=== PATIENT | female | born 1960 | race Caucasian/White ===

== ENCOUNTER 2020-03-28 15:02 | Emergency (ER) | payer MEDICARE, OTHER ==
[~2020-03-28] VITALS: Ht 157.5 cm; Wt 113.4 kg
[2020-03-28] MEDS ORDERED: AMLO5TAB9 PO (15:24)
[2020-03-28] MEDS ORDERED: HYDR28.316 RC (15:24)
[2020-03-28] MEDS ORDERED: ASCO-352 PO (15:24)
[2020-03-28] MEDS ORDERED: CLON0.1T PO (15:24)
[2020-03-28] MEDS ORDERED: POLY17PO4 PO (15:24)
[2020-03-28] MEDS ORDERED: LOSA50TA39 PO (15:24)
[2020-03-28] MEDS ORDERED: ZINC1CAP2 PO (15:24)
[2020-03-28] MEDS ORDERED: CHOL100040 PO (15:24)
--- NOTE | 2020-03-28 16:14 | NUR ---
CALLED [facility] FOR TRANSPORT TO [facility]. ETA 1899. TRIP NUMBER [id number].
--- NOTE | 2020-03-28 17:15 | NUR ---
CALLED [facility], NO ETA, REFERENCE NUMBER [id number].
--- NOTE | 2020-03-28 17:21 | NUR ---
SPOKE WITH CHRYSTAL FROM CALL THE CAR, TRANSPORTATION INFO: [facility] ETA: [id number]
[2020-03-28 18:15] VITALS: BP 144/86
--- NOTE | 2020-03-28 18:22 | NUR ---
SPOKE TO ROBERT DIGITAL CARTOGRAPHIC TECHNICIAN OF [facility], INFORMED THAT PATIENT IS COMING BACK TO FACILITY
--- NOTE | 2020-03-28 19:12 | NUR ---
Patient picked up by RA in stable condition. Written and verbal after care instructions given. Patient verbalizes understanding of instruction. Patient will be brought back to [facility].
== END 2020-03-28 19:13 ==
LOC: ER 15:06
DX: D17.79 Benign lipomatous neoplasm of other sites (principal); F32.9 Major depressive disorder, single episode, unspecified; M19.90 Unspecified osteoarthritis, unspecified site; I12.9 Hypertensive chronic kidney disease with stage 1 through stage 4 chronic kidney disease, or unspecified chronic kidney disease; E11.22 Type 2 diabetes mellitus with diabetic chronic kidney disease; N18.9 Chronic kidney disease, unspecified; E66.01 Morbid (severe) obesity due to excess calories; Z68.42 Body mass index [BMI] 45.0-49.9, adult; Z79.899 Other long term (current) drug therapy

== ENCOUNTER 2020-07-06 12:49 | Emergency (ER) | payer MEDICARE, OTHER ==
[~2020-07-06] VITALS: Ht 157.5 cm; Wt 113.4 kg
[~2020-07-06 12:49] MED LIST: AMLO-212 PO; ASCO-352 PO; CHOL100040 PO; CLON0.1T PO; HYDR28.316 RC; LOSA50TA39 PO; POLY17PO4 PO; ZINC1CAP2 PO
[2020-07-06 13:45] LABS: BASOPHILS # (AUTO) 0.1 /CMM (0.0-0.2); BASOPHILS % (AUTO) 0.7 % (0.0-2.0); EOSINOPHILS % (AUTO) 0.1 % (0.0-6.0); HEMATOCRIT 35 % (33-45); HEMOGLOBIN 11.7 g/dL (11.5-14.8); LYMPHOCYTES # (AUTO) 0.7 /CMM (0.8-4.8); LYMPHOCYTES % (AUTO) 6.8 % (20.0-44.0); MEAN CORPUSCULAR HGB CONC 33 g/dl (31.0-36.0); MEAN CORPUSCULAR VOLUME 87 fL (82-100); MONOCYTES # (AUTO) 0.6 /CMM (0.1-1.30); MONOCYTES % (AUTO) 6.4 % (2.0-12.0); NEUTROPHILS # (AUTO) 8.6 /CMM (1.8-8.9); PLATELET COUNT (AUTO) 295 /CMM (150-450); RED BLOOD CELL COUNT(AUTO) 4.08 MIL/uL (4.0-5.2)
[2020-07-06 13:53] LABS: CALCIUM, SERUM 9.6 mg/dL (8.5-10.1); CREATININE 1.2 mg/dL (0.6-1.3); POTASSIUM 4.1 mmol/L (3.5-5.1)
[2020-07-06 14:02] LABS: ALBUMIN 3.7 g/dL (3.4-5.0); BILIRUBIN,DIRECT 0.1 mg/dL (0.0-0.2); BILIRUBIN,TOTAL 0.4 mg/dL (0.2-1.0); TOTAL PROTEIN, SERUM 8.8 g/dL (6.4-8.2)
[2020-07-06] MEDS ORDERED: KETOROLAC TROMETHAMINE INJ 30 MG/ML VIAL IV ONE (14:30)
[2020-07-06] MEDS ORDERED: IV NS 0.9% 500 ML BAG IV ONE (14:30)
[2020-07-06 14:31] LABS: BILIRUBIN,URINE Negative (NEGATIVE); COLOR,URINE YELLOW (YELLOW); LEUKOCYTE ESTERASE ,URINE Negative (NEGATIVE); NITRITE, URINE Negative (NEGATIVE); PROTEIN,URINE 100 mg/dl (NEGATIVE); UGLUCOSE Negative (NEGATIVE)
[2020-07-06 14:43] LABS: BACTERIA,URINE Moderate /HPF (None Seen); RBC,URINE 0-3 /HPF (0-2); SQUAMOUS EPITHELIAL CELL,UR Moderate /HPF (None Seen); WBC,URINE 0-2 /HPF (0-3)
[2020-07-06] MEDS ORDERED: KETOROLAC TROMETHAMINE 15 MG/ML VIAL ONE (14:54)
--- NOTE | 2020-07-06 16:02 | NUR ---
ARRANGED BLS TRANSPORT WITH [facility] ETA: 1700 TRIP NUMBER:[id number] SPOKE TO JHONNY.
--- NOTE | 2020-07-06 17:14 | NUR ---
PATIENT A/OX4, BREATHING EVEN AND UNLABORED, NO SOB NOTED. NEEDS ATTENDED. IV removed. Catheter intact and site benign. Pressure and 4x4 applied to site. No bleeding noted.Patient discharged to facility in stable condition. Written and verbal after care instructions given. Patient verbalizes understanding of instruction. Report given to Brenda at [facility].
[2020-07-06 17:18] VITALS: BP 123/65
== END 2020-07-06 17:19 ==
LOC: ER 12:54
DX: S33.5XXA Sprain of ligaments of lumbar spine, initial encounter (principal); I10 Essential (primary) hypertension; F32.9 Major depressive disorder, single episode, unspecified; F03.90 Unspecified dementia, unspecified severity, without behavioral disturbance, psychotic disturbance, mood disturbance, and anxiety; E66.01 Morbid (severe) obesity due to excess calories; Z68.42 Body mass index [BMI] 45.0-49.9, adult; Z79.899 Other long term (current) drug therapy; W18.30XA Fall on same level, unspecified, initial encounter; Y93.89 Activity, other specified; Y92.89 Other specified places as the place of occurrence of the external cause; Y99.8 Other external cause status
CPT/HCPCS: 36415; 71045; 72110; 80048; 80076; 81001; 83690; 84484; 85025; 87086; 93005; 96374; 99285; J1885; J7040

== ENCOUNTER 2021-07-04 14:35 | Emergency (ER) | payer MEDICARE, OTHER ==
[~2021-07-04] VITALS: Ht 160 cm; Wt 98.0 kg
--- NOTE | 2021-07-04 14:45 | NUR ---
pt bib private ambulance from assisted living facility c/o "migraine" headache since last night. pt denies nausea and vomiting. verbally responsive. no focal weakness noted. 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
[2021-07-04] MEDS ORDERED: diphenhydrAMINE HCL 50 MG/ML VIAL IV ONE (15:00)
[2021-07-04] MEDS ORDERED: KETOROLAC TROMETHAMINE INJ 30 MG/ML VIAL IV ONE (15:00)
[2021-07-04] MEDS ORDERED: KETOROLAC TROMETHAMINE INJ 30 MG/ML VIAL ONE (15:03)
[2021-07-04] MEDS ORDERED: diphenhydrAMINE HCL 50 MG/ML VIAL ONE (15:03)
--- NOTE | 2021-07-04 15:13 | NUR ---
medicated as ordered. see emar.
--- NOTE | 2021-07-04 15:19 | NUR ---
THE PATIENT IS TAKEN TO CT [facility]IA [facility]
--- NOTE | 2021-07-04 15:32 | NUR ---
THE PATIENT IS BACK FROM [facility]IA [facility]
--- NOTE | 2021-07-04 17:38 | NUR ---
CALLED [facility] AND SET UP BLS TRANSPORT TO GO BACK TO [facility]. ETA 1800
--- NOTE | 2021-07-04 18:30 | NUR ---
NURSE SHENG MADE AWARE OF THE PATIENT GOING BACK TO THE FACILITY
--- NOTE | 2021-07-04 18:49 | NUR ---
IV removed. Catheter intact and site benign. Pressure and 4x4 applied to site. No bleeding noted.Patient discharged in stable condition. Written and verbal after care instructions given. Patient verbalizes understanding of instruction. The patient is picked up by arranged ambulance.
[2021-07-04 18:52] VITALS: BP 133/82
== END 2021-07-04 18:53 ==
LOC: ER 14:42
DX: G43.909 Migraine, unspecified, not intractable, without status migrainosus (principal); F32.9 Major depressive disorder, single episode, unspecified; F03.90 Unspecified dementia, unspecified severity, without behavioral disturbance, psychotic disturbance, mood disturbance, and anxiety; M19.90 Unspecified osteoarthritis, unspecified site; I12.9 Hypertensive chronic kidney disease with stage 1 through stage 4 chronic kidney disease, or unspecified chronic kidney disease; N18.9 Chronic kidney disease, unspecified; Z79.899 Other long term (current) drug therapy
CPT/HCPCS: 70450; 96374; 96375; 99284; J1200; J1885

== ENCOUNTER 2022-07-16 09:46 | Emergency (ER) | payer MEDICARE, OTHER ==
[~2022-07-16] VITALS: Ht 160 cm; Wt 99.8 kg
--- NOTE | 2022-07-16 10:03 | NUR ---
The patient denies loss of consciousness after the fall
--- NOTE | 2022-07-16 10:03 | NUR ---
According to the primary care nurse, the patient was using her front wheel walker when she slipped and fall
--- NOTE | 2022-07-16 10:03 | NUR ---
Witnessed fall by the primary care nurse while at the facility
--- NOTE | 2022-07-16 10:18 | NUR ---
pt taken to ct and x ray
[2022-07-16] MEDS ORDERED: IV NS 0.9% 500 ML BAG IV ONE (10:30)
[2022-07-16 11:04] LABS: CALCIUM, SERUM 9.1 mg/dL (8.5-10.1); CARBON DIOXIDE 30 mmol/L (21-32); CHLORIDE 96 mmol/L (98-107); CREATININE 1.1 mg/dL (0.6-1.3); GLUCOSE 102 mg/dL (74-106); POTASSIUM 4.5 mmol/L (3.5-5.1); SODIUM SERUM 133 mmol/L (136-145); UREA NITROGEN, BLOOD 22 mg/dL (7-18)
--- NOTE | 2022-07-16 11:05 | NUR ---
BLOOD SAMPLE COLLECTED AND SENT LAB.
--- NOTE | 2022-07-16 11:07 | NUR ---
established iv line 20 g right wrist ,
[2022-07-16 11:12] LABS: BASOPHILS % (AUTO) 0.4 % (0.0-2.0); EOSINOPHILS % (AUTO) 3.9 % (0.0-6.0); HEMATOCRIT 37 % (33-45); HEMOGLOBIN 11.6 g/dL (11.5-14.8); LYMPHOCYTES # (AUTO) 2.2 K/uL (0.8-4.8); LYMPHOCYTES % (AUTO) 22.9 % (20.0-44.0); MEAN CORPUSCULAR HGB CONC 31 g/dl (31.0-36.0); MEAN CORPUSCULAR VOLUME 89 fL (82-100); MONOCYTES # (AUTO) 0.8 K/uL (0.1-1.30); MONOCYTES % (AUTO) 8.7 % (2.0-12.0); NEUTROPHILS # (AUTO) 6.1 K/uL (1.8-8.9); NEUTROPHILS % (AUTO) 64.1 % (43.0-81.0); PLATELET COUNT (AUTO) 180 K/uL (150-450); RED BLOOD CELL COUNT(AUTO) 4.14 MIL/uL (4.0-5.2); WHITE BLOOD COUNT (AUTO) 9.4 K/uL (4.3-11.0)
--- NOTE | 2022-07-16 12:02 | NUR ---
[facility] CALLED FOR TRANSPORT ETA 20 MINS.
--- NOTE | 2022-07-16 12:34 | NUR ---
[facility] AT BEDSIDE.
[2022-07-16 12:45] VITALS: BP 115/63
== END 2022-07-16 12:46 | disposition home or self-care (01) ==
LOC: ER 09:49
DX: R51.9 Headache, unspecified (principal); I51.7 Cardiomegaly; I12.9 Hypertensive chronic kidney disease with stage 1 through stage 4 chronic kidney disease, or unspecified chronic kidney disease; N18.9 Chronic kidney disease, unspecified; F33.9 Major depressive disorder, recurrent, unspecified; E66.01 Morbid (severe) obesity due to excess calories; Z68.39 Body mass index [BMI] 39.0-39.9, adult; Z79.899 Other long term (current) drug therapy; W18.30XA Fall on same level, unspecified, initial encounter; Y93.89 Activity, other specified; Y92.89 Other specified places as the place of occurrence of the external cause; Y99.8 Other external cause status
CPT/HCPCS: 99285; 70450; 71045; 93005; 85025; 80048; 36415; 84484; J7040

== ENCOUNTER 2023-02-26 14:38 | Emergency (ER) | payer MEDICARE, OTHER ==
[~2023-02-26] VITALS: Ht 162.6 cm; Wt 61.2 kg
[2023-02-26 16:19] LABS: ALANINE AMINOTRANSFERASE 29 U/L (12-78); ALBUMIN 3.8 g/dL (3.4-5.0); ALCOHOL, BLOOD < 3 mg/dL (0-10); ALKALINE PHOSPHATASE 78 U/L (46-116); ASPARTATE AMINOTRANSFERASE 39 U/L (15-37); BILIRUBIN,DIRECT 0.1 mg/dL (0.0-0.2); BILIRUBIN,TOTAL 0.2 mg/dL (0.2-1.0); CALCIUM, SERUM 9.6 mg/dL (8.5-10.1); CARBON DIOXIDE 38 mmol/L (21-32); CHLORIDE 96 mmol/L (98-107); CREATININE 1.3 mg/dL (0.6-1.3); GLUCOSE 102 mg/dL (74-106); POTASSIUM 4.1 mmol/L (3.5-5.1); SODIUM SERUM 135 mmol/L (136-145); TOTAL PROTEIN, SERUM 7.8 g/dL (6.4-8.2); UREA NITROGEN, BLOOD 28 mg/dL (7-18)
[2023-02-26 16:24] LABS: BASOPHILS # (AUTO) 0.1 K/uL (0.0-0.2); EOSINOPHILS # (AUTO) 0.5 K/uL (0.0-0.7); EOSINOPHILS % (AUTO) 6.4 % (0.0-6.0); HEMATOCRIT 37 % (33-45); HEMOGLOBIN 11.7 g/dL (11.5-14.8); LYMPHOCYTES # (AUTO) 2.3 K/uL (0.8-4.8); MEAN CORPUSCULAR HEMOGLOBIN 29 PG (26.0-33.0); MEAN CORPUSCULAR HGB CONC 32 g/dl (31.0-36.0); MEAN CORPUSCULAR VOLUME 90 fL (82-100); MONOCYTES # (AUTO) 0.7 K/uL (0.1-1.30); MONOCYTES % (AUTO) 8.7 % (2.0-12.0); NEUTROPHILS # (AUTO) 4.2 K/uL (1.8-8.9); NEUTROPHILS % (AUTO) 53.9 % (43.0-81.0); PLATELET COUNT (AUTO) 171 K/uL (150-450); RED BLOOD CELL COUNT(AUTO) 4.05 MIL/uL (4.0-5.2); RED CELL DISTRIBUTION WIDTH 17.3 % (11.5-15.0); WHITE BLOOD COUNT (AUTO) 7.8 K/uL (4.3-11.0)
[2023-02-26] MEDS ORDERED: DOCU100T2 PO (18:34)
[2023-02-26 18:49] LABS: APPEARANCE,URINE CLEAR (CLEAR); BILIRUBIN,URINE NEGATIVE (NEGATIVE); BLOOD, URINE NEGATIVE Ery/uL (NEGATIVE); COLOR,URINE YELLOW (YELLOW); KETONES,URINE NEGATIVE (NEGATIVE); LEUKOCYTE ESTERASE ,URINE NEGATIVE (NEGATIVE); NITRITE, URINE NEGATIVE (NEGATIVE); PROTEIN,URINE NEGATIVE (NEGATIVE); UGLUCOSE NEGATIVE (NEGATIVE); UROBILINOGEN,URINE 0.2 EU/dL (0.2)
[2023-02-26 19:04] LABS: AMPHETAMINE, URINE NEGATIVE (NEGATIVE); BARBITURATE, URINE NEGATIVE (NEGATIVE); BENZODIAZEPINE, URINE NEGATIVE (NEGATIVE); CANNABINOID, URINE NEGATIVE (NEGATIVE); COCCAINE, URINE NEGATIVE (NEGATIVE); OPIATE, URINE NEGATIVE (NEGATIVE); PHENCYCLIDINE SCREEN,URINE NEGATIVE (NEGATIVE)
[2023-02-26 19:25] VITALS: BP 118/68; TEMP 98.1; O2SAT 97
== END 2023-02-26 19:25 ==
LOC: ER 14:44
DX: K59.00 Constipation, unspecified (principal); I13.0 Hypertensive heart and chronic kidney disease with heart failure and stage 1 through stage 4 chronic kidney disease, or unspecified chronic kidney disease; N18.9 Chronic kidney disease, unspecified; F32.A Depression, unspecified; E66.01 Morbid (severe) obesity due to excess calories; F03.90 Unspecified dementia, unspecified severity, without behavioral disturbance, psychotic disturbance, mood disturbance, and anxiety; Z79.899 Other long term (current) drug therapy
CPT/HCPCS: 36415; 71045-TC; 80048-TC; 80076-TC; 84484-TC; 85025-TC; G0480; J7030